=== PATIENT | male | born 1960 | race Caucasian/White ===

== ENCOUNTER 2016-06-28 21:00 | Emergency (ER) | payer OTHER ==
[~2016-06-28 21:00] MED LIST: ALTACE10 M1 PO; ASPIR 8181 MG PO; DEPAKOTE ER500 MG PO; DOLOPHINE10 MG PO; LIORESAL 10MG T10 MG PO; OXYCODONE HCL30 MG PO; OXYCONTIN80 MG PO; SOMA 350MG TAB350 MG PO; VITAMIN B12500 MCG PO; XANAX1 MG PO
[2016-06-28 21:54] LABS: ABSOLUTE BASOPHIL COUNT 0 /CUMM (0.0-0.2); ABSOLUTE EOSINOPHIL COUNT 0.2 /CUMM (0.0-0.7); ABSOLUTE GRANULOCYTE CT 2.3 /CUMM (1.4-6.5); ABSOLUTE LYMPH COUNT 1.6 /CUMM (1.2-3.4); ABSOLUTE MONOCYTE COUNT 0.5 /CUMM (0.10-0.60); BASOPHIL % 0.4 % (0.0-2.0); EOSINOPHIL % 4.1 % (0-5); GRANULOCYTE % 50.1 % (42.2-75.2); HEMATOCRIT 36.9 % (42-52); MEAN CORPUSCULAR HGB CONC 32.9 G/DL (33.0-37.0); MEAN PLATELET VOLUME 7.7 FL (7.4-10.4); PLATELET COUNT 112 /CUMM (130-400); RBC DISTRIBUTION WIDTH 15.1 % (11.5-14.5); RED BLOOD CELL CT 4.34 /CUMM (4.70-6.10); WHITE BLOOD CELL COUNT 4.6 /CUMM (4.8-10.8)
--- NOTE | 2016-06-28 21:58 | ED GENERAL ADULT ---
History of Present Illness General Chief Complaint: Foot or Ankle Injury Stated Complaint: "MY FOOT IS HUGE" Source: patient, family, old records Exam Limitations: no limitations Vital Signs & Intake/Output Vital Signs & Intake/Output Vital Signs Date Time Temp Pulse Resp B/P Pulse O2 O2 Flow FiO2 Ox Delivery Rate 06/28 2132 97.9 74 22 95 Allergies Coded Allergies: trazodone (Severe, SEIZURES 06/28/16) Reconcile Medications Alprazolam 1 MG TABLET 2 TAB PO DAILY ANXIETY (Reported) Alprazolam 1 MG TABLET 3 TAB PO QPM ANXIETY/SLEEP (Reported) Aspirin (Ecotrin*) 81 MG TABLET.DR 162 MG PO DAILY HEART/BLOOD (Reported) Carisoprodol (SOMA) 350 MG TABLET 1 TAB PO TID MUSCLE RELAXER (Reported) Divalproex Sodium (Depakote ER) (Unknown Strength) TAB.ER.24H 2,000 MG PO DAILY MENTAL HEALTH (Reported) Hydroxyzine Pamoate (Vistaril) 25 MG CAPSULE 1 CAP PO 4XDAILY ANXIETY ( Reported) Mirtazapine 45 MG TABLET 1 TAB PO QPM MENTAL HEALTH/SLEEP (Reported) Oxycodone HCl (Oxycontin) 60 MG TAB.ER.12H 1 TAB PO TID PAIN (Reported) Ramipril (Altace) 10 MG CAPSULE 1 CAP PO DAILY BP (Reported) Triage Note: PER PT L FOOT SWOLLEN, BILAT LE 3+EDEMA TO CALVES BILAT Triage Nurses Notes Reviewed? yes HPI: Patient presents with left lower extremity redness and swelling since this morning. No fevers or chills. Positive itching but no pain. Patient denies any chest pain or shortness of breath. Similar symptoms in the past when he's had cellulitis. Patient comes in for evaluation. Past History Travel History Traveled to [place] past 21 day No Medical History Any Pertinent Medical History? 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 No Review of Systems Review of Systems Constitutional: Reports: no symptoms. EENTM: Reports: no symptoms. Respiratory: Reports: no symptoms. Cardiovascular: Reports: no symptoms. GI: Reports: no symptoms. Genitourinary: Reports: no symptoms. Musculoskeletal: Reports: see HPI. Skin: Reports: no symptoms. Neurological/Psychological: Reports: no symptoms. Hematologic/Endocrine: Reports: no symptoms. Immunologic/Allergic: Reports: no symptoms. All Other Systems: Reviewed and Negative Physical Exam Physical Exam General Appearance: well developed/nourished, alert, awake Head: atraumatic, normal appearance Eyes: Bilateral: PERRL, EOMI. Ears, Nose, Throat: normal pharynx, normal ENT inspection, hearing grossly normal Neck: normal inspection, supple, full range of motion Respiratory: normal breath sounds, chest non-tender, no respiratory distress, lungs clear Cardiovascular: regular rate/rhythm, normal peripheral pulses Gastrointestinal: normal bowel sounds, soft, non-tender Back: normal inspection Extremities: pedal edema (LLE), LLE ERYTHEMA AND WARMTH NO INGUINAL ADENOPATHY Neurologic/Psych: no motor/sensory deficits, awake, alert, oriented x 3, normal mood/affect Skin: intact, ERYTHEMA Lymphatic: NO ADENOPATHY Core Measures ACS in differential dx? No CVA/TIA Diagnosis: No Severe Sepsis Present: No Septic Shock Present: No Progress Differential Diagnoses I considered the following diagnoses in my evaluation of the patient: [ Cellulitis, DVT] Plan of Care: Orders Procedure Date/time Status Add-on Test (ER Only) 06/28 2156 Active DEPAKOTE LEVEL 06/28 2144 Complete TROPONIN LEVEL 06/28 2134 Complete COMPREHENSIVE METABOLIC PANEL 06/28 2134 Complete CBC WITHOUT DIFFERENTIAL 06/28 2134 Complete B-TYPE NATRIURETIC PEP (BNP) 06/28 2134 Complete Laboratory Tests 06/28/162144: Anion Gap 5, Estimated GFR > 60, BUN/Creatinine Ratio 18.0, Glucose 110 H, Calcium 8.7, Total Bilirubin 0.3, AST 21, ALT 27, Alkaline Phosphatase 62, Troponin I < 0.01, [id number] Pept 489 H, Total Protein 5.8 L, Albumin 3.2 L, Globulin 2.6, Albumin/Globulin Ratio 1.2, CBC w Diff NO MAN DIFF REQ, RBC 4.34 L, MCV 85.0, MCH 28.0, RDW 15.1 H, MPV 7.7, Gran % 50.1, Lymphocytes % 34.6, Monocytes % 10.8 H, Eosinophils % 4.1, Basophils % 0.4, Absolute Granulocytes 2.3, Absolute Lymphocytes 1.6, Absolute Monocytes 0.5, Absolute Eosinophils 0.2, Absolute Basophils 0, PUBS MCHC 32.9 L, Valproic Acid 74.3 Initial ED EKG: none Departure Departure Disposition: HOME OR SELF CARE Condition: Stable Clinical Impression Primary Impression: Cellulitis Referrals: TRAM ARTHUR,KANDI Ramos (PCP/Family) Additional Instructions: Take antibiotics as prescribed. Have outpatient ultrasound performed tomorrow. Return if symptoms worsen or for any concerns. Departure Forms: Customer Survey General Discharge Information Prescriptions: Current Visit Scripts Amoxicillin/Potassium Clav (Augmentin 875-125 Tablet) 1 TAB PO BID #20 TAB Critical Care Note Critical Care Note Critical Care Time: non-applicable
[2016-06-28] MEDS ORDERED: OXYCONTIN60 M1 PO (22:20)
[2016-06-28] MEDS ORDERED: SOMA350 M1 PO (22:21)
[2016-06-28] MEDS ORDERED: ALPRAZOLAM1 M2 PO ×2 (22:22)
[2016-06-28] MEDS ORDERED: MIRTAZAPINE45 M1 PO (22:22)
[2016-06-28] MEDS ORDERED: VISTARIL25 M1 PO (22:23)
[2016-06-28] MEDS ORDERED: ALTACE10 M2 PO (22:24)
[2016-06-28] MEDS ORDERED: ASPIRIN EC81 M1 PO (22:24)
[2016-06-28] MEDS ORDERED: DEPAKOTE ER500 M1 PO (22:26)
[2016-06-28] MEDS ORDERED: AUGMENTIN 875-1 EACH PO (22:31)
[2016-06-28 22:45] VITALS: BP 140/76
== END 2016-06-28 22:46 ==
LOC: ERH 21:00
PROVIDERS: Emergency Medicine
DX: L03.116 Cellulitis of left lower limb (principal)
CPT/HCPCS: 96374; J0696

== ENCOUNTER 2016-08-08 15:21 | Emergency (ER) | payer OTHER ==
[~2016-08-08] VITALS: Ht 175.3 cm; Wt 74.8 kg
[~2016-08-08 15:21] MED LIST changes: +ALPRAZOLAM1 M2 PO; +ALTACE10 M2 PO; +ASPIRIN EC81 M1 PO; +AUGMENTIN 875-1 EACH PO; +DEPAKOTE ER500 M1 PO; +MIRTAZAPINE45 M1 PO; +OXYCONTIN60 M1 PO; +SOMA350 M1 PO; +VISTARIL25 M1 PO
[2016-08-08 15:23] VITALS: BP 161/103
[2016-08-08] MEDS ORDERED: IBUPROFEN800 M1 PO (15:51)
[2016-08-08] MEDS ORDERED: MEDROL4 M2 PO (15:51)
--- NOTE | 2016-08-08 15:52 | ED NECK/BACK PAIN COMPLAINT ---
History of Present Illness General Chief Complaint: Low Back Pain/Injury Stated Complaint: SCIATICA [id number] Source: patient Exam Limitations: no limitations Vital Signs & Intake/Output Vital Signs & Intake/Output Vital Signs Date Time Temp Pulse Resp B/P B/P Pulse O2 O2 Flow FiO2 Mean Ox Delivery Rate 08/08 1523 96.0 110 20 161/103 95 Room Air Allergies Coded Allergies: trazodone (Severe, SEIZURES 06/28/16) Reconcile Medications Alprazolam 1 MG TABLET 2 TAB PO DAILY ANXIETY (Reported) Alprazolam 1 MG TABLET 3 TAB PO QPM ANXIETY/SLEEP (Reported) Amoxicillin/Potassium Clav (Augmentin 875-125 Tablet) 875 MG-125 MG TABLET 1 TAB PO BID CELLULITIS Aspirin (Ecotrin*) 81 MG TABLET.DR 162 MG PO DAILY HEART/BLOOD (Reported) Carisoprodol (SOMA) 350 MG TABLET 1 TAB PO TID MUSCLE RELAXER (Reported) Divalproex Sodium (Depakote ER) (Unknown Strength) TAB.ER.24H 2,000 MG PO DAILY SEIZURES (Reported) Hydroxyzine Pamoate (Vistaril) 25 MG CAPSULE 1 CAP PO 4XDAILY ANXIETY ( Reported) Ibuprofen 800 MG TABLET 1 TAB PO TID pain Methylprednisolone. (Medrol) 4 MG TAB.DS.PK 1 DP PO AD back pain 6 on day 1 then reduce by one tablet daily until gone Mirtazapine 45 MG TABLET 1 TAB PO QPM MENTAL HEALTH/SLEEP (Reported) Oxycodone HCl (Oxycontin) 60 MG TAB.ER.12H 1 TAB PO TID PAIN (Reported) Ramipril (Altace) 10 MG CAPSULE 1 CAP PO DAILY BP (Reported) Triage Note: PT TO TRIAGE WITH C/O LOWER BACK PAIN 10/10 RADIATING TO LLE [id number]. PT HAS BEEN TAKING OXICOTIN WITH TEMPORARY PAIN RELIEF. HX OF CHRONIC BACK PAIN,COPD,ANXIETY,DEPRESISON,HTN. Triage Nurses Notes Reviewed? yes Onset: Abrupt Duration: week(s): (3), constant, continues in ED Timing: recent history Quality/Severity: moderate, severe Location: lumbar spine HPI: 48-year-old male comes into emergency room with complaints of left lower back pain radiating down his left leg for the past 3 weeks. History of previous discectomies. Patient is in pain management. Patient is on high-dose oxycodone 60 mg 3 times a day as well as Soma 3 times a day. Patient reports that symptoms began after he was doing some light gardening at home. Pain is sharp. Continuous. Worse with range of motion. Denies any urinary bowel dysfunction. Denies any other associated symptoms. Patient has not contacted his primary care doctor or his pain doctor. (LIAM CORDON) Past History Travel History Traveled to [place] past 21 day No Medical History Any Pertinent Medical History? 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 No (LIAM CORDON) Review of Systems Review of Systems Constitutional: Reports: no symptoms. Eyes: Reports: no symptoms. Ears, Nose, Throat, Mouth: Reports: no symptoms. Respiratory: Reports: no symptoms. Cardiovascular: Reports: no symptoms. Gastrointestinal/Abdominal: Reports: no symptoms. Musculoskeletal: Reports: see HPI. Skin: Reports: no symptoms. Neurological/Psychological: Reports: no symptoms. All Other Systems: Reviewed and Negative (LIAM CORDON) Physical Exam Physical Exam General Appearance: well developed/nourished, mild distress Head: atraumatic Eyes: Bilateral: normal appearance. Ears, Nose, Throat, Mouth: hearing grossly normal, moist mucous membrane Neck: normal inspection, full range of motion Respiratory: normal breath sounds, no respiratory distress Back: normal inspection, left paraspinal tenderness Extremities: normal range of motion Motor: Deficit L4 Right: No Deficit L4 Left: No Deficit L5 Right: No Deficit L5 Left: No Deficit S1 Right: No Deficit S1 Right: No Neurologic/Psych: awake, alert, oriented x 3, normal mood/affect Skin: intact, normal color, warm/dry (LIAM CORDON) Progress Differential Diagnosis: cauda equina syn, herniated disc, myofascial strain, pyelo/UTI, sciatica, spinal cord inj, thoracic outlet syn, T/L spine injury, ureterolithiasis Plan of Care: Current Medications Sig/Diego Start time Last Medication Dose Stop Time Status Admin Hydromorphone HCl 2 MG ONCE ONE 08/08 1544 UNVr (Dilaudid) 08/08 1545 Departure Departure Disposition: HOME OR SELF CARE Condition: Stable Clinical Impression Primary Impression: Lumbar radiculopathy Referrals: TRAM ARTHUR,KANDI Ramos (PCP/Family) Additional Instructions: Take Medrol Dosepak and ibuprofen as prescribed. Follow-up with your primary care doctor. Return if any concerns worsening symptoms. If symptoms persist you need to follow-up for MRI of low back. Please go over all results of today's visit with your primary care doctor. Contact your primary care doctor to let them know you were here in the emergency room. There may be nonspecific findings which may not be related to your visit today here in the emergency room but may require further evaluation and chronic monitoring by your primary care doctor. If you had a laceration today the chance of foreign body always remains. You should follow-up with your primary care doctor for recheck in 3-5 days for a wound check. If you had an x-ray done there is a chance that a fracture could have been missed on initial read and you should follow-up with your primary care doctor for repeat x-rays if symptoms persist. If your blood pressure was elevated here in the emergency room please have rechecked by her primary care doctor within the next 48 hours by your primary care doctor. If you were prescribed a narcotic here in the emergency room or any type of controlled substances you're not allowed to drive while taking this medication or operate any type of heavy machinery. Narcotics can make you feel lightheaded dizziness nausea and can cause constipation. You may need to case picker a stool softener. Thank you for choosing [facility] emergency room. Please return to the emergency room immediately if you have any other concerns worsening of symptoms. Departure Forms: Customer Survey General Discharge Information Prescriptions: Current Visit Scripts Ibuprofen 1 TAB PO TID #30 TAB Methylprednisolone. (Medrol) 1 DP PO AD #1 DP 6 on day 1 then reduce by one tablet daily until gone Comments 08/08/2016 4:10:41 PM Patient clinically looks well. Nontoxic-appearing. In no apparent distress. Resting comfortably in room. No evidence of acute motor weakness on exam. Patient treated symptomatically. Shot of Dilaudid. Return if any other concerns. (MAYA WAGGONER,LIAM) PA/ROUGH AND TRUING MACHINE OPERATOR Co-Sign Statement Statement: ED Attending supervision documentation- [] I saw and evaluated the patient. I have also reviewed all the pertinent lab results and diagnostic results. I agree with the findings and the plan of care as documented in the PA's/ROUGH AND TRUING MACHINE OPERATOR's documentation. [X] I have reviewed the ED Record and agree with the PA's/ROUGH AND TRUING MACHINE OPERATOR's documentation. [] Additions or exceptions (if any) to the PAs/ROUGH AND TRUING MACHINE OPERATOR's note and plan are summarized below: [] (MOOSE ARTHUR,NAJMA Roque)
== END 2016-08-08 16:04 ==
LOC: ERH 15:21
DX: M54.16 Radiculopathy, lumbar region (principal)
CPT/HCPCS: 96372